=== PATIENT | male | born 1940 | race Caucasian/White ===

== ENCOUNTER 2016-09-24 09:00 | Day surgery (SDC) | payer MEDICARE, OTHER ==
--- NOTE | ~2016-09-24 | EGD ---
EGD REPORT [facility] [address] [id number] NAME: LOS SHORT : [birth year] STATUS : REG [facility] PAT#: [id number] AGE: 76 ADM/REG DATE : 09/24/16 MR#: [id number] REPORT SERV DATE: 09/24/16 DICTATED BY: EMELIA YUN DATE: 09/24/16 REPORT STATUS : Draft TRANSCRIBED BY: [facility] DATE: 09/24/16 Endoscopy Center Patient Name: Los Short Date of : 1940 Attending MD: EMELIA YUN MD Procedure Date No Time: 09/24/2016 Procedure: Colonoscopy Indications: Screening for colorectal malignant neoplasm Referring MD: AMELIA ESPINOZA MD Medicines: Monitored Anesthesia Care Complications: No immediate complications. Procedure: Pre-Anesthesia Assessment: - ASA Grade Assessment: III - A patient with severe systemic disease. After I obtained informed consent, the scope was passed under direct vision. Throughout the procedure, the patient's blood pressure, pulse, and oxygen saturations were monitored continuously. The CF [id number] was introduced through the anus and advanced to the terminal ileum, with identification of the appendiceal orifice and IC valve. The colonoscopy was performed without difficulty. The patient tolerated the procedure well. The quality of the bowel preparation was good. Findings: The digital rectal exam was normal. Pertinent negatives include no palpable rectal lesions. The terminal ileum appeared normal. A sessile polyp was found in the rectum. The polyp was 5 mm in size. The polyp was removed with a cold biopsy forceps. Resection and retrieval were complete. Hemorrhoids were found during retroflexion and were mild. Impression: - The examined portion of the ileum was normal. - One 5 mm polyp in the rectum. Resected and retrieved. - Hemorrhoids. Recommendation: - Patient has a contact number available for emergencies. The signs and symptoms of potential delayed complications were discussed with the patient. Return to normal activities tomorrow. Written discharge instructions were provided to the patient. - Regular diet. - Continue present medications. - Await pathology results. EGD REPORT [facility] [address] [place]. [address] NAME: LOS SHORT : 44 STATUS : REG [facility] PAT#: [id number] AGE: 76 ADM/REG DATE : 09/24/16 MR#: [id number] REPORT SERV DATE: 09/24/16 DICTATED BY: EMELIA YUN DATE: 09/24/16 REPORT STATUS : Draft TRANSCRIBED BY: [employer] DATE: 09/24/16 - Repeat colonoscopy in 5-10 years for surveillance based on pathology results. - Return to GI clinic PRN. Procedure Code(s): --- Professional --- 37126, Colonoscopy, flexible, proximal to splenic flexure; with biopsy, single or multiple Diagnosis Code(s): --- Professional --- K64.9, Unspecified hemorrhoids K62.1, Rectal polyp Z12.11, Encounter for screening for malignant neoplasm of colon CPT copyright 2013 [employer]. All rights reserved. The codes documented in this report are preliminary and upon employment assistant review may be revised to meet current compliance requirements. EMELIA YUN MD 09/24/2016 12:01 PM This report has been signed electronically. Number of Addenda: 0 Note Initiated On: 09/24/2016 11:30 AM Scope Withdrawal Time 0 hours 9 minutes 41 seconds [address] [place] [address]
[~2016-09-24 09:00] MED LIST: AMARYL4 PO; ASAB PO; CAT1 PO; COREG12 PO; COREG25 PO; DEMA20 PO; DOX25 PO; FORTAMET500 MG PO; GLUCPH PO; JANUVIA100 MG PO; L20 PO; LISINOPRIL40 MG PO; MONODOX50 MG PO; NORV5 PO; PLAVIX PO; T PO; Z300 PO; ZOCOR40 PO; ZYRTEC ALLGY10 MG PO
== END 2016-09-24 23:59 | disposition home or self-care (01) ==
LOC: DMU 09:00
PROVIDERS: Internal Medicine Gastroenterology
PROC: 0DBP8ZX Excision of Rectum, Via Natural or Artificial Opening Endoscopic, Diagnostic (ICD-10-PCS; principal; 2016-09-24 11:00)
DX: Z12.11 Encounter for screening for malignant neoplasm of colon (principal); D12.8 Benign neoplasm of rectum; K64.9 Unspecified hemorrhoids; I25.10 Atherosclerotic heart disease of native coronary artery without angina pectoris; E11.9 Type 2 diabetes mellitus without complications; E78.00 Pure hypercholesterolemia, unspecified; M19.90 Unspecified osteoarthritis, unspecified site; M10.9 Gout, unspecified; I10 Essential (primary) hypertension; Z88.8 Allergy status to other drugs, medicaments and biological substances; Z79.82 Long term (current) use of aspirin; Z79.899 Other long term (current) drug therapy; Z98.41 Cataract extraction status, right eye; Z98.42 Cataract extraction status, left eye; Z98.52 Vasectomy status; Z95.1 Presence of aortocoronary bypass graft; Z98.890 Other specified postprocedural states
CPT/HCPCS: 82962; 88305